=== PATIENT | female | born 1965 | race Caucasian/White ===

== ENCOUNTER → 2017-04-06 | Outpatient (CLI) | payer BC ==
[~2017-04-06] MED LIST: FLONASEALLERGY NS; NORCO 325 MG-51 TAB PO; SYNTHROID0.088 MG/T PO
== END ==
LOC: COL.RAD 13:16
DX: E04.9 Nontoxic goiter, unspecified (principal)

== ENCOUNTER → 2018-09-06 | Outpatient (CLI) | payer SELFPAY | LOC: MC.RAD 11:45 | DX: Z12.31 Encounter for screening mammogram for malignant neoplasm of breast (principal) ==

== ENCOUNTER → 2019-09-14 | Outpatient (CLI) | payer SELFPAY | LOC: ZCOL.LAB 17:14 | DX: Z20.828 Contact with and (suspected) exposure to other viral communicable diseases (principal) ==

== ENCOUNTER → 2022-07-01 | Outpatient (CLI) | payer OTHER | LOC: COL.RAD 06-13 14:15 | DX: E03.9 Hypothyroidism, unspecified (principal); E06.9 Thyroiditis, unspecified ==

== ENCOUNTER → 2022-07-08 | Outpatient (CLI) | payer SELFPAY | LOC: COL.RAD 09:44 | DX: R13.10 Dysphagia, unspecified (principal) ==